=== PATIENT | female | born 1945 | race Caucasian/White ===

== ENCOUNTER 2017-12-29 10:23 | Day surgery (SDC) | payer OTHER, BC ==
[2017-12-17 12:21] VITALS: BMI 21.6
[~2017-12-29 10:23] MED LIST: ACETAMINOPHEN 325 MG TABLET (FP) PO PRN
[2017-12-29] MEDS: KETOROLAC TROMETHAMINE 0.5% EYE DROP 1 DROP DROPS ONE ×5 (11:20→11:40)
[2017-12-29] MEDS: TROPICAMIDE 1% OPHTH SOLN 15 ML BOTTLE ONE ×5 (11:20→11:40)
[2017-12-29] MEDS: CYCLOPENTOLATE HCL 1% OPHTH SOLN 2 ML BOTTLE ONE ×5 (11:20→11:40)
[2017-12-29] MEDS: GENTAMICIN SULFATE 0.3% OPHTHALMIC (EYE DROPS) 5ML BOTTLE ONE ×5 (11:20→11:40)
[2017-12-29] MEDS: PHENYLEPHRINE 2.5% OPHTH SOLN 15 ML BOTTLE ONE ×5 (11:20→11:40)
[2017-12-29] MEDS ORDERED: LIDOCAINE HCL/PF 2% SDV 5ML VIAL ONE ×2 (13:27→13:53)
[2017-12-29] MEDS ORDERED: LIDOCAINE HCL 2% JELLY 10 ML CARTRIDGE ONE (13:27)
[2017-12-29] MEDS ORDERED: BUPIVACAINE HCL/PF 0.5% (5MG/ML) 10 ML VIAL ONE (13:27)
[2017-12-29] MEDS ORDERED: ACETYLCHOLINE 1:100 INTRA-OCUL 20 MG/2 ML KIT ONE (13:36)
[2017-12-29] MEDS ORDERED: PROPOFOL 20 ML ONE (13:49)
[2017-12-29] MEDS ORDERED: EPI-SHUGARCAINE (EPINEPHRINE 0.025% & LIDOCAINE-PF 0.75%) 4ML ONE (14:07)
[2017-12-29 15:27] VITALS: TEMP 98.2
[2017-12-29 15:44] VITALS: BP 108/52; PULSE 72
--- NOTE | 2017-12-29 16:37 | OP ---
DATE OF OPERATION: 12/29/2017 TITLE OF PROCEDURE: Planned extracapsular cataract extraction via phacoemulsification with insertion of posterior chamber lens implant, right eye. SURGEON: Fidel Leyva MD DEEP TISSUE MASSAGE THERAPIST: Fidel Leyva MD COMPLICATIONS: None. PREOPERATIVE DIAGNOSIS: Mature cataract, right eye. POSTOPERATIVE DIAGNOSIS: Mature cataract, right eye. ANESTHESIOLOGIST: Bennett Garnica MD ANESTHESIA: Local/standby. FINDINGS OF PROCEDURE: After successful peribulbar anesthesia was given to the right eye in the operating room, the patient was prepped and draped in usual manner exposing the right eye. Lid speculum was inserted after the Tegaderm strips were placed on the lashes and the eyelids opened. The operating room microscope was brought into position over the right eye. As mentioned, the patient was prepped and draped in the usual manner. A superior fornix-based flap was then fashioned for 12 mm using Yuniel scissors and 0.12 forceps and hemostasis with wet-field cautery. Limbal groove was then fashion for 3 mm with the crescent blade dissecting anterior to clear cornea and then a 3-mm blade was used to enter the anterior chamber, then under Viscoat, 360-degree anterior capsulorhexis was performed. This was after Tetracaine had been injected into the anterior chamber. The phacoemulsification of entire nucleus was done in bimanual technique in approximately 1-1/2 minutes' time followed by irrigation and aspiration of all cortical material leaving intact anterior posterior capsule and red reflex present. Provisc was injected in the posterior chamber to deepen the posterior capsule and the implant was inspected carefully and found to be free of defects, debris, and flaws, irrigated thoroughly and it was folded and placed in the Provisc-filled cartridge. The cartridge was placed in the injector and the implant was injected into the eye such as that the inferior haptic was in the inferior capsular bag and the superior haptic in the superior capsular bag, and then rotated in the horizontal position with the Sinskey hook. The Provisc was aspirated out and placed Miochol and Miostat and the wound was closed with a single interrupted 2-0 Ethilon suture and tested for leakage and none was found. The conjunctival and tenon flap was reapproximated. At this point, the implant was fixated in the capsular bag centrally located with a round pupil intact and posterior capsule and a red reflex present. Topical Betoptic S and gentamicin ophthalmic solutions were placed on the eye. The Tegaderm strips were removed from the lids as was the speculum. Lids were closed, and a patch and shield placed on the eye and patient was then discharged from the operating room to the recovery area in good condition having tolerated the procedure well. Richie VALLES/[id number]
== END 2017-12-29 15:47 | disposition home or self-care (01) ==
LOC: FASU 10:23
PROVIDERS: ATTEND Ophthalmology
PROC: 08RJ3JZ Replacement of Right Lens with Synthetic Substitute, Percutaneous Approach (ICD-10-PCS; principal; 2017-12-29 14:08)
DX: H25.89 Other age-related cataract (principal)

== ENCOUNTER 2018-01-12 07:25 | Day surgery (SDC) | payer OTHER, BC ==
[2018-01-01 08:46] VITALS: BMI 33.1
[2018-01-12] MEDS: KETOROLAC TROMETHAMINE 0.5% EYE DROP 1 DROP DROPS ONE ×5 (08:10→08:30)
[2018-01-12] MEDS: TROPICAMIDE 1% OPHTH SOLN 15 ML BOTTLE ONE ×5 (08:10→08:30)
[2018-01-12] MEDS: PHENYLEPHRINE 2.5% OPHTH SOLN 15 ML BOTTLE ONE ×5 (08:10→08:30)
[2018-01-12] MEDS: CYCLOPENTOLATE HCL 1% OPHTH SOLN 2 ML BOTTLE ONE ×5 (08:10→08:30)
[2018-01-12] MEDS: GENTAMICIN SULFATE 0.3% OPHTHALMIC (EYE DROPS) 5ML BOTTLE ONE ×5 (08:10→08:30)
[2018-01-12] MEDS ORDERED: MIDAZOLAM HCL 2 MG/2 ML SINGLE DOSE VIAL ONE (09:31)
[2018-01-12] MEDS ORDERED: LIDOCAINE HCL/PF 2% SDV 5ML VIAL ONE ×2 (09:37→10:05)
[2018-01-12] MEDS ORDERED: BUPIVACAINE HCL/PF 0.5% (5MG/ML) 10 ML VIAL ONE (09:37)
[2018-01-12] MEDS ORDERED: LIDOCAINE HCL 2% JELLY 10 ML CARTRIDGE ONE (09:37)
[2018-01-12] MEDS ORDERED: EPI-SHUGARCAINE (EPINEPHRINE 0.025% & LIDOCAINE-PF 0.75%) 4ML ONE (09:37)
[2018-01-12] MEDS ORDERED: ACETYLCHOLINE 1:100 INTRA-OCUL 20 MG/2 ML KIT ONE (09:38)
[2018-01-12] MEDS ORDERED: ONDANSETRON 4 MG/2 ML VIAL ONE (10:05)
[2018-01-12] MEDS ORDERED: ONDANSETRON 4 MG/2 ML VIAL IVPUSH PRN (11:13)
[2018-01-12] MEDS ORDERED: ACETAMINOPHEN 325 MG TABLET (FP) PO PRN (11:13)
[2018-01-12 11:25] VITALS: TEMP 97.9
[2018-01-12 11:50] VITALS: BP 118/51; PULSE 75
--- NOTE | 2018-01-14 15:30 | OP ---
DATE OF OPERATION: 01/12/2018 TITLE OF PROCEDURE: Planned extracapsular cataract extraction, phacoemulsification, and insertion of posterior chamber lens implant in the left eye. SURGEON: Fidel Leyva MD HOD CARRIER SURGEON: Laurie Castillo MD ANESTHESIA: Local/standby. PEST LOCATOR: LAURA Tamayo COMPLICATIONS: None. PREOPERATIVE DIAGNOSIS: Cataract, left eye. POSTOPERATIVE DIAGNOSIS: Cataract, left eye. FINDINGS AT PROCEDURE: After successful peribulbar anesthesia, and then, massage was given to soften the left eye. The patient was prepped and draped to expose the left eye after Tegaderm strips and a lid speculum were inserted underneath the left eyelids. The operating microscope brought into position over the left eye, and then, a superior fornix-based flap was then fashioned for 12 mm using Yuniel scissors and 0.12 forceps. Hemostasis achieved with wet-field cautery. Limbal groove was then fashioned for 3 mm with a crescent blade and dissected anterior into clear cornea. A 3-mm blade was used to enter the anterior chamber, and then, under Viscoat, a 360-degree anterior capsulotomy was performed. The leaflet removed from the eye. It should be noted that Shugarcaine was injected into the anterior chamber and topically, and this was all preservative-free, prior to the onset of the phacoemulsification. After phacoemulsification was complete, the cortical material was irrigated and aspirated out without complication, leaving an intact posterior capsule and a red reflex present. Provisc was injected in the posterior chamber, to deepen the posterior capsule, and the implant was inspected carefully with the microscope, found to be free of defects or being flawed and irrigated thoroughly. The implant was folded and placed in the Provisc-filled cartridge and the cartridge was placed in the injector and the implant was injected into the eye such that the inferior haptic was in the inferior capsular bar and the superior haptic in the superior capsular bag and rotated in a horizontal position with a Sinskey hook. Provisc was aspirated out, replaced with Miochol, Miostat, and BSS, and the wound was closed with a single interrupted suture and tested for leakage and none was found. The conjunctival tenon flap was reapproximated. At this point, the implant was fixated in the capsular bag, centrally located with a round pupil, intact posterior capsule, and a red reflex present. Topical Betoptic S and Maxitrol ophthalmic suspensions were placed, as was bacitracin/polymyxin B ophthalmic ointment. Patient had tolerated these well before without any reaction. The Tegaderm strips and lid speculum were removed from the lid. The lids were closed and a patch and shield placed on the eye and the patient was then discharged from the operating room to the recovery area in good condition, having tolerated the procedure well. Richie [id number]
== END 2018-01-12 11:55 | disposition home or self-care (01) ==
LOC: FASU 07:25
PROVIDERS: ATTEND Ophthalmology
PROC: 08RK3JZ Replacement of Left Lens with Synthetic Substitute, Percutaneous Approach (ICD-10-PCS; principal; 2018-01-12 10:26)
DX: H26.9 Unspecified cataract (principal)

== ENCOUNTER 2024-02-02 14:47 | Inpatient (IN) | payer OTHER, BC ==
[2024-02-02 16:30] LABS: INR 1.04 (0.83-1.09); PROTHROMBIN TIME (PATIENT) 11.7 SEC (9.7-13.0)
[2024-02-02 16:33] LABS: ACTIVATED PTT 35.8 SECONDS (25.2-36.5)
[2024-02-02 16:34] LABS: BASO % 0.5 % (0-2.0); EOS % 1.6 % (0-4.5); HEMATOCRIT 26.1 % (32.4-45.2); HEMOGLOBIN 7.9 GM/dL (10.7-15.3); LYMPH % 31.9 % (8-40); MCH 21.7 pg (25.7-33.7); MCHC 30.3 g/dl (32.0-36.0); MEAN CELL VOLUME 71.6 fl (80-96); MONO % 11.6 % (3.8-10.2); NEUT % 54.4 % (42.8-82.8); PLATELET COUNT 271 10^3/uL (134-434); RBC 3.65 M/mm3 (3.60-5.2); RDW 18.1 % (11.6-15.6); WHITE BLOOD COUNT 4.5 K/mm3 (4.0-10.0)
[2024-02-02 17:21] LABS: ALBUMIN 3.5 g/dl (3.4-5.0); BLOOD UREA NITROGEN 13.2 mg/dL (7-18); CALCIUM 9.3 mg/dL (8.5-10.1)
[2024-02-02 17:24] LABS: CREATININE 0.8 mg/dL (0.55-1.3)
[2024-02-02 17:25] LABS: ANISOCYTOSIS 2+; MACROCYTOSIS 0; OVALOCYTE 1+
[2024-02-02 17:26] LABS: BILIRUBIN,TOTAL 0.3 mg/dL (0.2-1); TOT PROT 6.3 g/dl (6.4-8.2)
[2024-02-02] MEDS: ROSUVASTATIN CA 20 MG TABLET PO SCH (23:26)
[2024-02-03 03:46] LABS: PH,URINE 6.5 (5.0-8.0); URINE APPEARANCE CLEAR; URINE BILIRUBIN NEGATIVE (NEGATIVE); URINE COLOR YELLOW; URINE GLUCOSE (UA) NEGATIVE (NEGATIVE); URINE KETONE NEGATIVE (NEGATIVE); URINE LEUK ESTERASE NEGATIVE (NEGATIVE); URINE NITRITE NEGATIVE (NEGATIVE); URINE PROTEIN NEGATIVE (NEGATIVE); URINE UROBILINOGEN 0.2 mg/dL (0.2-1.0)
[2024-02-03] MEDS: LEVOTHYROXINE NA 88 MCG TABLET (FP) PO SCH (08:06)
[2024-02-03 08:31] LABS: BASO % 0.7 % (0-2.0); EOS % 1.7 % (0-4.5); HEMATOCRIT 28.7 % (32.4-45.2); LYMPH % 34.5 % (8-40); MCH 22.6 pg (25.7-33.7); MCHC 31.5 g/dl (32.0-36.0); MEAN CELL VOLUME 71.6 fl (80-96); MEAN PLT VOLUME 7.8 fl (7.5-11.1); MONO % 12.5 % (3.8-10.2); NEUT % 50.6 % (42.8-82.8); PLATELET COUNT 249 10^3/uL (134-434); RDW 17.8 % (11.6-15.6); WHITE BLOOD COUNT 3.8 K/mm3 (4.0-10.0)
[2024-02-03 09:31] LABS: POTASSIUM 3.9 mmol/L (3.5-5.1)
[2024-02-03 09:35] LABS: ALBUMIN 3.4 g/dl (3.4-5.0); BLOOD UREA NITROGEN 9.2 mg/dL (7-18); CALCIUM 8.8 mg/dL (8.5-10.1)
[2024-02-03 09:38] LABS: CREATININE 0.6 mg/dL (0.55-1.3); PHOSPHOROUS 3.3 mg/dL (2.5-4.9)
[2024-02-03] MEDS: PANTOPRAZOLE 40 MG TABLET PO SCH (11:05)
[2024-02-03] MEDS: EZETIMIBE 10 MG TABLET (FP) PO SCH (11:06)
[2024-02-03] MEDS: LISINOPRIL 20 MG TABLET PO SCH (11:13)
[2024-02-03] MEDS: amLODIPine BESYLATE 10 MG TABLET (FP) PO SCH (11:14)
[2024-02-03] MEDS: POLYETHYLENE GLYCOL (HEALTHYLAX) 3350 17 GM PACKET PO SCH (21:47)
[2024-02-04] MEDS: MELATONIN 5 MG TABLETS PO PRN (01:05)
[2024-02-04 08:37] LABS: BASO % 0.8 % (0-2.0); EOS % 1.7 % (0-4.5); HEMATOCRIT 28.6 % (32.4-45.2); LYMPH % 32.6 % (8-40); MCH 22.6 pg (25.7-33.7); MCHC 31.4 g/dl (32.0-36.0); MEAN CELL VOLUME 71.8 fl (80-96); MEAN PLT VOLUME 7.8 fl (7.5-11.1); MONO % 13.5 % (3.8-10.2); NEUT % 51.4 % (42.8-82.8); PLATELET COUNT 255 10^3/uL (134-434); RBC 3.99 M/mm3 (3.60-5.2); RDW 18.2 % (11.6-15.6); WHITE BLOOD COUNT 3.9 K/mm3 (4.0-10.0)
[2024-02-04 08:38] LABS: INR 1.1 (0.83-1.09); PROTHROMBIN TIME (PATIENT) 12.4 SEC (9.7-13.0)
[2024-02-04 08:54] LABS: ALBUMIN 3.4 g/dl (3.4-5.0); BLOOD UREA NITROGEN 6.7 mg/dL (7-18); CALCIUM 9.3 mg/dL (8.5-10.1)
[2024-02-04 08:57] LABS: CREATININE 0.6 mg/dL (0.55-1.3)
[2024-02-04 08:59] LABS: BILIRUBIN,TOTAL 0.6 mg/dL (0.2-1); TOT PROT 5.8 g/dl (6.4-8.2)
[2024-02-04] MEDS ORDERED: ALBUTEROL SO4 0.083% IH SOL 2.5 MG/3 ML VIAL.NEB. NEB PRN (09:53)
[2024-02-04] MEDS: BISACODYL 5 MG TABLET.DR (FP) PO ONE (16:56)
[2024-02-04] MEDS: PEG 3350/NA SULF BICARB CL/KCL 4000 ML SOLN.RECON PO ONE (17:43)
[2024-02-04] MEDS: ONDANSETRON 4 MG/2 ML VIAL IVPUSH ONE (23:05)
[2024-02-05 09:46] LABS: BASO % 0.6 % (0-2.0); HEMATOCRIT 28.8 % (32.4-45.2); HEMOGLOBIN 8.9 GM/dL (10.7-15.3); LYMPH % 28.3 % (8-40); MCH 22.1 pg (25.7-33.7); MCHC 31.1 g/dl (32.0-36.0); MEAN CELL VOLUME 71.2 fl (80-96); MEAN PLT VOLUME 7.6 fl (7.5-11.1); MONO % 14.1 % (3.8-10.2); PLATELET COUNT 243 10^3/uL (134-434); RBC 4.04 M/mm3 (3.60-5.2); RDW 18.2 % (11.6-15.6); WHITE BLOOD COUNT 4.7 K/mm3 (4.0-10.0)
[2024-02-05 09:52] LABS: INR 1.12 (0.83-1.09); PROTHROMBIN TIME (PATIENT) 12.8 SEC (9.7-13.0)
[2024-02-05 10:36] LABS: BLOOD UREA NITROGEN 7.9 mg/dL (7-18); CALCIUM 9.1 mg/dL (8.5-10.1)
[2024-02-05 10:37] LABS: ALBUMIN 3.4 g/dl (3.4-5.0)
[2024-02-05 10:40] LABS: CREATININE 0.7 mg/dL (0.55-1.3)
[2024-02-05 10:41] LABS: BILIRUBIN,TOTAL 0.5 mg/dL (0.2-1)
[2024-02-05 16:38] VITALS: TEMP 97.5
[2024-02-05 17:12] VITALS: BP 130/76; PULSE 68; RESP 17
== END 2024-02-05 19:05 | disposition home or self-care (01) | DRG 392 ==
LOC: JER 14:47 → JERBED 18:24 → J8W 21:56
PROVIDERS: ADMIT Internal Medicine; ATTEND Nurse Practitioner Family
PROC: 30233N1 Transfusion of Nonautologous Red Blood Cells into Peripheral Vein, Percutaneous Approach (ICD-10-PCS; 2024-02-02)
PROC: 0DB68ZX Excision of Stomach, Via Natural or Artificial Opening Endoscopic, Diagnostic (ICD-10-PCS; 2024-02-05)
PROC: 0DB68ZZ Excision of Stomach, Via Natural or Artificial Opening Endoscopic (ICD-10-PCS; 2024-02-05)
PROC: 0DBL8ZX Excision of Transverse Colon, Via Natural or Artificial Opening Endoscopic, Diagnostic (ICD-10-PCS; 2024-02-05)
PROC: 0DBL8ZZ Excision of Transverse Colon, Via Natural or Artificial Opening Endoscopic (ICD-10-PCS; 2024-02-05)
PROC: 0W3P8ZZ Control Bleeding in Gastrointestinal Tract, Via Natural or Artificial Opening Endoscopic (ICD-10-PCS; 2024-02-05)
PROC: 0DB98ZX Excision of Duodenum, Via Natural or Artificial Opening Endoscopic, Diagnostic (ICD-10-PCS; principal; 2024-02-05 15:00)
DX: K29.70 Gastritis, unspecified, without bleeding (principal); D50.9 Iron deficiency anemia, unspecified; E03.9 Hypothyroidism, unspecified; E78.5 Hyperlipidemia, unspecified; K21.9 Gastro-esophageal reflux disease without esophagitis; M35.00 Sjogren syndrome, unspecified; I10 Essential (primary) hypertension; K31.7 Polyp of stomach and duodenum; K57.30 Diverticulosis of large intestine without perforation or abscess without bleeding; K64.8 Other hemorrhoids; K63.5 Polyp of colon
CPT/HCPCS: 36415; 36430; 71045-TC-FY; 74177-TC; 80053; 81003; 82272; 82728; 83540; 83550; 83735; 84100; 84439; 84443; 84466; 85025; 85045; 85610; 85730; 86850; 86870; 86880; 86900; 86901; 86902; 86922; 88305-TC; 88342-TC; 93005; 93010; 99285-25; P9058